=== PATIENT | female | born 1970 | race Caucasian/White ===

== ENCOUNTER → 2024-03-31 06:25 | Outpatient (REF) | payer BC, SELFPAY | LOC: HWWDC 06:25 | PROVIDERS: ATTENDING PHYSICIAN Nurse Practitioner Adult Health | DX: Z12.31 Encounter for screening mammogram for malignant neoplasm of breast (principal) | CPT/HCPCS: 77063; 77067 ==

== ENCOUNTER → 2024-06-16 06:25 | Day surgery (SDC) | payer BC, SELFPAY | LOC: GI 06:25 | PROVIDERS: ATTENDING PHYSICIAN Internal Medicine | DX: D12.3 Benign neoplasm of transverse colon (principal); K57.30 Diverticulosis of large intestine without perforation or abscess without bleeding; K64.9 Unspecified hemorrhoids; Z83.710 Family history of adenomatous and serrated polyps | CPT/HCPCS: 45385; 88305 ==

== ENCOUNTER → 2024-10-26 09:43 | Outpatient (REF) | payer BC, SELFPAY | LOC: WDC 09:43 | PROVIDERS: ATTENDING PHYSICIAN Nurse Practitioner Adult Health; FAMILY PHYSICIAN Nurse Practitioner Adult Health | DX: N64.52 Nipple discharge (principal) | CPT/HCPCS: 76642; 77061; 77065 ==

== ENCOUNTER 2024-12-31 13:56 | Emergency (ER) | payer BC, SELFPAY ==
[2024-12-31 14:02] VITALS: BP 150/88
[2024-12-31 15:14] VITALS: BMI 35.1
[2024-12-31 16:00] VITALS: BP 146/81
--- NOTE | 2024-12-31 16:06 | ED.GENMED ---
History of Present Illness
General
Chief Complaint: DVT/Possible Blood Clot
Source: patient
Exam Limitations: none
Time Seen by Provider: 12/31/24 15:56
History of Present Illness
History of Present Illness:
54yoF with a history of hypertension, obesity, and hypothyroidism presenting for evaluation after a positive DVT study earlier today. Patient started to experience charley horses in her left leg 1.5 weeks ago. She then noticed some ecchymosis to
the leg earlier today. She was seen by her PCP who sent her for outpatient blood work and a venous duplex. Venous duplex revealed an acute occlusive left soleal vein DVT. She was sent to the ED for concern for a pulmonary embolism. She reports
some exertional dyspnea and intermittent sharp chest pains over the past several weeks. No syncopal episodes. No prior history of DVT. She travels to [place] every weekend which is a [address] but otherwise denies any travel. No
recent injuries or surgeries. No family history of VTE. No tobacco use.
Past History
Past History
ED Past Medical History: Hypothyroidism
ED Past Surgical History: None
Social History
Tobacco: Non-smoker
Alcohol: None
Drug: None
Phy Exam
General Physical Exam
General Presentation: well appearing and no apparent distress
General age: appears stated age
General Skin: warm and dry
General Habitus: normal
General Mental: alert
ENT Exam
ENT Exam: normocephalic
Cardiovascular Exam
Cardiovascular Exam: regular rate/rhythm
Pulmonary Exam
Pulmonary Exam: lungs clear, no respiratory distress, no rales, no crackles and no rhonchi
Neurological Exam
Neurological Exam: alert
Felisa Coma Scale
Eye Opening: Spontaneous
Verbal Response: Oriented
Motor Response: Obeys Commands
GCS Total Score: 15
Musculoskeletal Exam
Musculoskeletal Exam: other (L leg: Ecchymosis noted around ankle and anterior ramirez. No pitting edema. 2+ DP pulse. )
Skin Exam
Skin Exam: warm/dry
Psychiatric Exam
Psychiatric Exam: normal mood/affect
Course
Orders/Labs/Results
Orders:
Orders
12/31/24 16:05
Electrocardiogram (*1) Urgent
Reason for Study: Shortness of Breath
EKG- Treatment ONCE
12/31/24 16:06
CT Chest PE Study Urgent
Comment:
Reason For Exam: SOB, diagnosed with DVT earlier today
12/31/24 16:14
NT-proBNP Urgent
Troponin I Urgent
12/31/24 18:56
Apixaban [Eliquis] 10 mg PO NOW STA
Vital Signs
Initial and Last Documented VS:
Initial Vital Signs
Temp Pulse Resp BP Pulse Ox
99.0 F 79 16 150/88 98
12/31/24 14:02 12/31/24 14:02 12/31/24 14:02 12/31/24 14:02 12/31/24 14:02
Last Documented Vital Signs
Temp Pulse Resp BP Pulse Ox
99.0 F 67 15 130/76 98
12/31/24 14:02 12/31/24 18:00 12/31/24 18:00 12/31/24 18:00 12/31/24 18:00
MDM/Problems Addressed
Differential Diagnosis Includes:
54yoF sent to the ED by PCP to r/o PE. Venous duplex earlier today showed an acute L soleal vein DVT. C/o exertional dyspnea and intermittent sharp chest pains x several weeks. VSS. HR in the 60-70s during exam and oxygen saturation 98% on room air.
She is well appearing in no distress. She is speaking in full sentences without difficulty. Differential diagnosis includes but is not limited to: DVT, PE, deconditioning, doubt ACS
Initial ED plan: Outpatient labs sent earlier today reviewed. Will check troponin, BNP, EKG, and CTA chest.
*EKG
Interpreted by ED Provider?: Yes
EKG Intrepretation Date: 12/31/24
Heart Rate: 65
Rate: normal
Rhythm: sinus
[place]: left axis deviation
Interval: normal interval
QRS Pattern: normal QRS
Ischemia: no ischemia
*Critical Care Note
Total Time (30-74mins, 75-104mins- exclusive of procedures): Not Applicable
Update Note
Update Note:
EKG shows normal sinus rhythm without ischemic changes. Troponin and BNP normal. CT is negative for pulmonary embolism. Patient is stable for discharge. Prescription given for Eliquis starter pack and coupon provided. First dose given in ED.
Advised close follow-up with PCP. ED return precautions discussed. Patient in agreement with plan and was discharged in stable condition.
ED Attending Note
-
Portions of this chart may have been created with voice recognition software.� Occasional wrong word or��sound alike� substitutions may have occurred due to the inherent limitations of voice recognition software.
Discharge Plan
Departure
Patient Disposition: Home (Routine Discharge)
Date of Disposition: 12/31/24
Time of Disposition: 18:56
Patient with high blood pressure during this ER visit?: Yes
Discharge Problem:
Acute deep vein thrombosis (DVT) of calf muscle vein of left lower extremity
Instructions: Deep Vein Thrombosis (Blood Clots in the Legs) (DC), Apixaban
Prescriptions:
New
Eliquis DVT-PE Treat 30D Start 5 mg (74 tabs) tablets,dose pack
See Rx Instructions .ROUTE .COMPLEX Qty: 74 0RF
Rx Instructions:
orally per package directions
Referrals:
Ayesha Castano CRNP [Family Provider] -
Activity Restrictions/Additional Instructions:
Take Eliquis (blood thinner) as prescribed.
Please follow-up with your family doctor. You will need further refills after the starter pack.
Return to the ER immediately with any shortness of breath, chest pain, or passing out.
Interventions
Interventions:
*Risk Screen - Suicide Last Done: 12/31/24 14:02
*General Assessment Last Done: 12/31/24 15:14
*Neglect/Abuse Screening Last Done: 12/31/24 15:14
*ED- Fall Risk Assessment Last Done: 12/31/24 15:14
*ED COVID-19 Vaccine History Last Done: 12/31/24 15:14
*Nursing Disposition Last Done: 12/31/24 19:06
ED- Cardiac Assessment Last Done: 12/31/24 15:14
ED- Pulmonary Assessment Last Done: 12/31/24 15:14
ED-Peripheral Vascular Assessment Last Done: 12/31/24 18:54
ED-Skin Assessment Last Done: 12/31/24 15:14
Discharge Date and Time
Discharge Date/Time: 12/31/24 19:07
Print Language: [email or web address]
[2024-12-31 16:43] LABS: NT-proBNP 54.3 pg/ml; Troponin I < 0.012 ng/ml
[2024-12-31 17:00] VITALS: BP 133/87
[2024-12-31 18:00] VITALS: BP 130/76
[2024-12-31] MEDS: ELIQUIS 10 MG PO (19:02)
== END 2024-12-31 19:07 | disposition home or self-care (01) ==
LOC: EMR 13:56
PROVIDERS: Physician Assistant; EMERGENCY PHYSICIAN Emergency Medicine; FAMILY PHYSICIAN Nurse Practitioner Adult Health
DX: I82.462 Acute embolism and thrombosis of left calf muscular vein (principal); R06.09 Other forms of dyspnea; E03.9 Hypothyroidism, unspecified; I10 Essential (primary) hypertension
CPT/HCPCS: 99284; 36415; 71275; 80053; 83880; 84443; 84484; 85025; 85379; 93005; 93971; Q9967

== ENCOUNTER → 2025-01-25 10:53 | Outpatient (REF) | payer BC, SELFPAY | LOC: DHSLP 10:53 | PROVIDERS: ATTENDING PHYSICIAN Internal Medicine; FAMILY PHYSICIAN Nurse Practitioner Adult Health | DX: G47.33 Obstructive sleep apnea (adult) (pediatric) (principal) | CPT/HCPCS: 95810 ==

== ENCOUNTER → 2025-03-29 11:33 | Outpatient (REF) | payer BC, SELFPAY | LOC: RAD 11:33 | PROVIDERS: ATTENDING PHYSICIAN Nurse Practitioner Adult Health | DX: I82.492 Acute embolism and thrombosis of other specified deep vein of left lower extremity (principal) | CPT/HCPCS: 93971 ==

== ENCOUNTER → 2025-04-01 06:37 | Outpatient (REF) | payer BC, SELFPAY | LOC: HWWDC 06:37 | PROVIDERS: ATTENDING PHYSICIAN Nurse Practitioner Adult Health | DX: Z12.31 Encounter for screening mammogram for malignant neoplasm of breast (principal) | CPT/HCPCS: 77063; 77067 ==